=== PATIENT | female | born 1980 | race Caucasian/White ===

== ENCOUNTER 2018-03-25 00:34 | Emergency (ER) | payer BC ==
[~2018-03-25] VITALS: Ht 167.6 cm; Wt 115.7 kg
[2018-03-25 00:38] VITALS: Ht 167.6 cm; Wt 115.7 kg
[2018-03-25 04:02] VITALS: BP 160/97
== END 2018-03-25 04:02 | disposition home or self-care (01) ==
LOC: ED 00:34
PROC: 2W3DX1Z Immobilization of Left Lower Arm using Splint (ICD-10-PCS; principal; 2018-03-25)
PROC: 3E033NZ Introduction of Analgesics, Hypnotics, Sedatives into Peripheral Vein, Percutaneous Approach (ICD-10-PCS; 2018-03-25)
PROC: 3E033GC Introduction of Other Therapeutic Substance into Peripheral Vein, Percutaneous Approach (ICD-10-PCS; 2018-03-25)
DX: S52.512A Displaced fracture of left radial styloid process, initial encounter for closed fracture (principal); W01.0XXA Fall on same level from slipping, tripping and stumbling without subsequent striking against object, initial encounter; Y92.9 Unspecified place or not applicable
CPT/HCPCS: J2270; J2405; J2704; J3010; J7030; Q0092